=== PATIENT | male | born 1995 | race Hispanic/Latino ===

== ENCOUNTER 2019-01-04 21:02 | Emergency (ER) | payer MEDICAID ==
[2019-01-04] MEDS ORDERED: IBUPROFEN 600 MG TABLET ONE (21:12)
== END 2019-01-04 22:18 | disposition home or self-care (01) ==
LOC: EDH 21:02
DX: S83.8X1A Sprain of other specified parts of right knee, initial encounter (principal); Z72.0 Tobacco use; W18.39XA Other fall on same level, initial encounter; Y93.89 Activity, other specified; Y92.89 Other specified places as the place of occurrence of the external cause; Y99.8 Other external cause status
CPT/HCPCS: 73562

== ENCOUNTER 2021-07-21 18:02 | Emergency (ER) | payer MEDICAID ==
[~2021-07-21] VITALS: Ht 175.3 cm; Wt 88.5 kg
[2021-07-21 18:04] VITALS: BP 138/68
[2021-07-21] MEDS ORDERED: ACETAMINOPHEN 500 MG TABLET PO ONE (18:30)
[2021-07-21] MEDS ORDERED: 0.9%NACL 1000ML 1,000 ML IV SCH (18:30)
[2021-07-21 18:41] LABS: BASOPHILS % (AUTO) 0.4 % (0.0-5.0); EOSINOPHILS % (AUTO) 0.1 % (0.0-8.0); HEMATOCRIT 47.2 % (42-54); MEAN CORPUSCULAR HEMOGLOBIN 29.3 pg (27.0-33.0); MEAN CORPUSCULAR HGB CONC 33.3 g/dL (32.0-36.0); MEAN CORPUSCULAR VOLUME 88.2 fL (79-99); MONOCYTES % (AUTO) 6.1 % (3.0-13.0); NEUTROPHILS % (AUTO) 77.2 % (40.0-77.0); PLATELET COUNT (AUTO) 237 K/uL (130-400); RED BLOOD CELL COUNT(AUTO) 5.35 MIL/uL (4.50-6.20); RED CELL DISTRIBUTION WIDTH 11.8 % (11.0-15.5); WHITE BLOOD COUNT (AUTO) 8.4 K/uL (4.8-10.8)
[2021-07-21 18:45] LABS: APPEARANCE,URINE Clear (CLEAR); BILIRUBIN,URINE Negative (NEGATIVE); COLOR,URINE Dark Yellow (YELLOW); GLUCOSE, URINE (UA) Negative (NEGATIVE); KETONES,URINE Trace mg/dL (NEGATIVE); LEUKOCYTE ESTERASE ,URINE Negative (NEGATIVE); NITRATE,URINE Negative (NEGATIVE); OCCULT BLOOD,URINE Large (NEGATIVE); PROTEIN,URINE POS 1+ mg/dL (NEGATIVE)
[2021-07-21 18:49] LABS: CREATININE 1.1 mg/dL (0.5-1.5); POTASSIUM 3.6 mmol/L (3.5-5.1)
[2021-07-21 18:49] LABS: INFLUENZA TYPE A NEGATIVE FOR TYPE A (NEG)
[2021-07-21 18:50] LABS: INFLUENZA TYPE B NEGATIVE FOR TYPE B (NEG)
[2021-07-21 18:54] LABS: ALBUMIN 3.9 g/dL (3.5-5.0); BILIRUBIN,TOTAL 0.4 mg/dL (0.2-1.0); TOTAL PROTEIN, SERUM 7.6 g/dL (6.0-8.3)
[2021-07-21 19:15] LABS: BACTERIA,URINE Rare /HPF (None Seen); RBC,URINE 0-1 /HPF (0-1); SQUAMOUS EPITHELIAL CELL,UR 0-2 /HPF (0-2); WBC,URINE 0-1 /HPF (0-1)
[2021-07-21 19:16] LABS: MUCUS,URINE Rare LPF (None Seen)
[2021-07-21] MEDS ORDERED: CEPH500B PO (19:23)
[2021-07-21] MEDS ORDERED: IBUP-2071 PO (19:23)
[2021-07-21] MEDS ORDERED: CEFTRIAXONE 1G VIAL IVP ONE (19:30)
[2021-07-21] MEDS ORDERED: AMOX1TAB16 PO (19:43)
[2021-07-21] MEDS ORDERED: ACET-2247 PO (19:46)
== END 2021-07-21 19:51 | disposition home or self-care (01) ==
LOC: EDH 18:02
DX: B34.9 Viral infection, unspecified (principal); E86.0 Dehydration; R31.9 Hematuria, unspecified; Z20.822 Contact with and (suspected) exposure to COVID-19; Z79.1 Long term (current) use of non-steroidal anti-inflammatories (NSAID)
CPT/HCPCS: 36415; 71045; 80053; 81001; 85025; 87635; 87804 ×2; 96361; 96374; 99284; C9803; J0696; J7030